=== PATIENT | male | born 1955 | race Caucasian/White ===

== ENCOUNTER 2018-05-30 23:24 | Inpatient (IN) | payer BC ==
[2018-05-30] MEDS ORDERED: niCARdipine 20MG In NaCl 20 MG/200 ML BAG ONE (23:51)
[2018-05-31] MEDS ORDERED: Zolpidem Tartrate 5 MG TAB PO PRN (00:56)
[2018-05-31] MEDS ORDERED: Ondansetron ODT 4 MG TAB PO PRN (00:56)
[2018-05-31] MEDS ORDERED: Nitroglycerin 50 MG/250 ML BOT 250 ML IVPB SCH (01:00)
[2018-05-31 01:46] LABS: CKMB 1.9 ng/mL (0-6.6)
[2018-05-31] MEDS: Ondansetron PF 4 MG/2 ML Vial IVP PRN ×2 (02:41→11:35)
[2018-05-31] MEDS: Sodium Chloride 0.9% 1,000 ML IV SCH ×2 (02:41→20:24)
[2018-05-31 04:24] VITALS: BMI 23.4
[2018-05-31] MEDS ORDERED: hydrALAZINE 20 MG/ML VIAL SLOW IVP PRN ×2 (04:26→10:49)
[2018-05-31] MEDS: niCARdipine HCl 25 MG in Sodium Chloride 0.9% 250 ML 240 ML IVPB PRN ×2 (04:29→11:10)
[2018-05-31] MEDS: Acetaminophen 325 MG TAB PO PRN ×2 (04:36→11:19)
--- NOTE | 2018-05-31 05:30 | HP ---
CHIEF COMPLAINT: Headaches. HISTORY OF PRESENT ILLNESS: This is a 62-year-old male with past medical history of hypertension pre senting from [place] to our facility to be evaluated for hypertension. The patient was transfer red from [place] to be seen in our ED because the patient's blood pressure was elevated at 226/1 54. The patient states that he is not from around here. He is actually from [facility] , and he came here to visit. The patient states that on Wednesday his physician in [place] saw him for headache and abdominal pain and during that time, the physician told the patient that his blood p ressure was very high and that the physician had already ordered blood pressure medications, but were not yet delivered to the patient. Therefore, the physician told the patient to double up on his los wei, which to double it up from 50 mg to 100 mg. The patient states that he started taking the med ication as instructed by the physician; however, the blood pressure continues to be high. At this po int, the patient endorses headaches and abdominal pain, otherwise, the patient denies any vision nielsen ges, nausea, vomiting, chest pain, palpitations, dysuria, hematuria. Of note, the patient has a history of rectal cancer requiring radiation and that normally gives the p atient's abdominal pain because of the previous radiation that has been done for the patient. The maria c farooq also has history of colectomy and now patient does have colostomy, which was performed 2 years ago. The patient also had bilateral hydronephrosis requiring bilateral metal stents which were place d 6 weeks ago and during that time, it was noted that the patient also has abscess between the bladde r and his kidneys and patient is on antibiotics for this. REVIEW OF SYSTEMS: Hypertension, headache, abdominal pain, otherwise as documented in the HPI, all o ther systems were reviewed and are negative. PAST MEDICAL HISTORY: Rectal cancer, hepatitis C positive, HIV positive, hypertension, status post c olostomy, bilateral ureteral stents, inguinal hernia. PAST SURGICAL HISTORY: Colostomy, ureteral stents, inguinal hernia. PSYCHIATRIC HISTORY: No psych history. SOCIAL HISTORY: The patient denies alcohol use. The patient uses marijuana and the patient lives in [facility]. FAMILY HISTORY: Reviewed and noncontributory to this visit. KNOWN ALLERGIES: No known drug allergies. CURRENT MEDICATIONS: The patient takes mirtazapine 15 mg, trazodone 50 mg, amoxicillin-clavulanate 8 75 mg/125 mg, oxybutynin chloride 5 mg, Culturelle, tamsulosin, Biktarvy, and losartan 50 mg. PHYSICAL EXAMINATION: VITAL SIGNS: Blood pressure of 195/106, pulse of 87, respiratory rate of 18, temperature of 98.1, O2 saturation of 98. GENERAL: The patient is awake, alert, oriented x3, not in acute distress. The patient is lying in b ed comfortably, able to speak in full sentences. HEENT: Normocephalic, atraumatic. Pupils are equal, round, and reactive to light. Extraocular move ments are intact. No scleral icterus. No conjunctival pallor. Mucous membranes are dry. NECK: No JVD. Full range of motion, supple. Trachea is midline. LUNGS: Clear to auscultation bilaterally. No wheezing, no rales, no rhonchi. CARDIOVASCULAR: Positive S1, S2, regular rate and rhythm. No murmurs, no gallops, no rubs appreciat ed. ABDOMEN: Soft, nontender, nondistended. Positive bowel sounds in all quadrants. The patient has a colostomy bag with stools and gas. No erythema, no drainage, no ecchymosis, no signs of cellulitis a round the area. EXTREMITIES: The patient has 5/5 upper extremity strength, 5/5 lower extremity strength. Good pulse s bilaterally at the upper and lower extremities. No edema noted. NEUROLOGIC: Cranial nerves II through XII grossly intact. No neurologic deficits noted. SKIN: Warm, dry, and intact referred to the abdomen for skin description. PSYCHIATRIC: Alert, oriented x3, not in acute distress. HEENT: Normal affect. RADIOLOGY: CT of the head is negative. CT of the abdomen and pelvis showed bilateral hydronephrosis with bilateral ureteral stents. Mildly contracted urinary bladder with evidence of mildly thickened wall. LABORATORY DATA: WBC 13.5, hemoglobin is 13.0, hematocrit is 38.1, platelet count is 288. Sodium is 136, potassium is 5.3, chloride is 109, carbon dioxide of 14, BUN is 90, creatinine is 5.31. GFR is 11. Lactic acid is 0.6. Magnesium is 1.9. AST 16, ALT is 11, alkaline phosphatase is 86, creatini ne kinase is 68. Urinalysis, small leukoesterase, but there is a large amount of epithelial cells. ASSESSMENT AND PLAN: This is a 62-year-old male being admitted for hypertensive emergency. At this point, the patient has been admitted to the ICU. We are going to start patient on nicardipine drip. We will continue this nicardipine drip. We have also ordered nitroglycerin to be given if nicardipi ne drip is not working, then we will switch the patient to the nitroglycerin and we will titrate the blood pressure to systolic between 160 to 180. At this point, we will continue supportive care. We will monitor the patient very closely. 1. Headaches. The patient's headaches has not been resolving since the patient's blood pressure is not being controlled. 2. Acute on chronic kidney disease stage 5. At this point, we have consulted Nephrology to follow u p with the patient, since the patient's GFR is less than 30. We will follow up with Nephrology's rec ommendation. We have ordered renal panel. We will follow up on these labs. Of note, we will hold l osartan, since the patient has acute kidney injury. 3. Abdominal abscess. The patient states that he has an appointment to follow up with his urologist for more imaging. The patient is currently taking amoxicillin. We are going to continue patient on this medications in this hospital. 4. History of human immunodeficiency virus. The patient states that his CD4 count is currently abov e 800. We will monitor the patient closely. 5. Status post colostomy, currently stable. We will monitor the patient. 6. Deep venous thrombosis and gastrointestinal prophylaxis.
[2018-05-31 06:32] LABS: #Eosinphils 0.1 thou/uL (0.0-0.7); #Lymphocytes 2.1 thou/uL (1.20-3.40); #Monocytes 0.8 thou/uL (0.11-0.59); #Neutrophils 6.3 thou/uL (1.40-6.50); %Basophils 0.5 % (0.0-1.0); %Eosinophils 1.4 % (0.0-10.0); %Lymphocytes 22.9 % (21.0-51.0); %Monocytes 8.3 % (0.0-10.0); Hemoglobin 12.3 g/dL (14.0-18.0); Mean Corpuscular HGB CONC 31.7 g/dL (32.0-36.0); Mean Corpuscular Hemoglobin 30.7 pg (27.0-31.0); Mean Corpuscular Volume 97.1 fL (78.0-98.0); Mean Platelet Volume 7.9 fL (7.4-10.4); Platelet Count 248 thou/uL (130-400); RBC Distribution Width 12.4 % (11.5-14.5); White Blood Cell (WBC) Count 9.4 thou/uL (4.8-10.8)
[2018-05-31 06:57] LABS: Anion Gap 17 mmol/L (10-20); BUN (Urea Nitrogen) 79 mg/dL (8.4-25.7); Calc. Creatinine Clearance 18 mL/min (70-130); Calcium 9.7 mg/dL (7.8-10.44); Carbon Dioxide 15 mmol/L (23-31); Chloride 112 mmol/L (98-107); Estimated GFR-MDRD 12; Glucose 105 mg/dL (80-115); Potassium 4.8 mmol/L (3.5-5.1); Sodium 139 mmol/L (136-145)
[2018-05-31] MEDS: Amlodipine 10 MG TAB PO SCH (07:56)
--- NOTE | 2018-05-31 07:56 | CT ---
PRELIMINARY REPORT/[facility]/EMERGENTY AFTER-HOURS PROCEDURE CT Head Without Intravenous Contrast EXAM DATE/TIME: 05/31/2018 12:12 AM CLINICAL HISTORY: 62 years old, male; Pain; Headache; Patient HX: 62 yo m presents to ed via ems with hypertension. PT C/O headache and abdominal pain earlier tonight, PT reports highest BP tonight was 226/154. PT report s his headache has now improved but it is not resolved. PT reports HX of rectal cancer, HX of hiv, HX of colostomy performed 2 years ago due to a hole in his colon. TECHNIQUE: Axial computed tomography images of the head/brain without intravenous contrast. COMPARISON: No relevant prior studies available. FINDINGS: Brain: No hemorrhage. There are scattered foci of hypoattenuation within the periventricular and subc ortical white matter compatible with mild chronic microvascular ischemic change. Ventricles: Normal. No ventriculomegaly. Bones/joints: Normal. No acute fracture. Sinuses: Normal as visualized. No acute sinusitis. Mastoid air cells: Normal as visualized. No mastoid effusion. Soft tissues: Normal. IMPRESSION: No acute intracranial hemorrhage. Thank you for allowing us to participate in the care of your patient. Dictated and Authenticated by: Niko Leblanc MD 05/31/2018 12:32 AM Central Time ([place] & [place]) FINAL REPORT CT BRAIN WITHOUT CONTRAST: I agree with the preliminary interpretation. No acute intracranial hemorrhage or mass effect. POS: [facility]
[2018-05-31] MEDS: (Bictegrav/Emtricit/Tenofov Ala [Biktarvy 50-200-25 Mg Tablet] PO SCH (09:00)
[2018-05-31] MEDS ORDERED: Famotidine/PF 20 mg/2ml Vial SLOW IVP SCH ×2 (09:00)
[2018-05-31] MEDS ORDERED: Famotidine 20 MG TAB PO SCH (09:00)
[2018-05-31] MEDS: Heparin 5,000 UNITS/ML VIAL SC SCH ×2 (09:07→20:09)
[2018-05-31] MEDS: Famotidine 20 MG TAB PO SCH (09:07)
[2018-05-31] MEDS: Lactinex Tablet PO SCH (09:16)
[2018-05-31] MEDS: Tamsulosin HCl 0.4 MG CAP PO SCH (09:19)
[2018-05-31] MEDS: Docusate 100 MG CAP PO SCH (09:20)
[2018-05-31] MEDS: Oxybutynin 5 MG TAB PO SCH ×2 (09:20→20:10)
--- NOTE | 2018-05-31 10:01 | CON ---
DATE OF CONSULTATION: 05/31/2018 REASON FOR CONSULTATION: Hypertensive emergency in CCU stay. HISTORY OF PRESENT ILLNESS: This is a 62-year-old male who lives in [place]. He is currently in the area for [employer]. He noted his blood pressure to be severely elevated at home yesterday and came in. When he arrived, his blood pressure was 226/154. He has been placed on nicardipine drip. He has an elevated BUN and creatinine. It is not known if that is related to hypertension or not. He has a history of what sounds to be urethral strictures from previous radiation for rectal cancer. He has stents that have been put in for that. PAST MEDICAL HISTORY: 1. HIV. 2. He thinks he has hepatitis B, although his history and physical says hepatitis C. 3. Bilateral urethral strictures with stent placement. 4. History of a colostomy in the past with inguinal hernia. PAST SURGICAL HISTORY: 1. Colostomy. 2. Ureteral stents. 3. Inguinal hernia repair. 4. Vein stripping. SOCIAL HISTORY: Does not consume alcohol or uses marijuana. Does not smoke cigarettes. FAMILY MEDICAL HISTORY: Unremarkable. ALLERGIES: None. MEDICATIONS: Prior to admission, mirtazapine, trazodone, Augmentin, oxybutynin and losartan. PHYSICAL EXAMINATION: VITAL SIGNS: Temperature 97.5, pulse 89, blood pressure 165/96, currently on nicardipine drip at 5 m cg per hour. O2 sat 98%. GENERAL: He is awake and alert, in no distress. HEENT: Unremarkable. NECK: No JVD. CARDIOVASCULAR: S1, S2 regular, without murmur. LUNGS: Clear. ABDOMEN: Soft, nontender. EXTREMITIES: No clubbing, cyanosis or edema. LABORATORY DATA: Sodium 139, potassium 4.8, chloride 112, CO2 15, anion gap 12, BUN 79, creatinine 4 .8, glucose 105. White blood cell count 9.4, hematocrit 30.9, platelet count 248,000. Brain CT nega tive. ASSESSMENT: 1. Hypertensive emergency. 2. Elevated BUN and creatinine -- has evidence of elevated RBCs and white blood cells, could be micaela cative of nephritis. 3. Chronic hepatitis B. PLAN: 1. Blood pressure management with nicardipine. 2. Would avoid PREET inhibitors and angiotensin II blockers until BUN and creatinine have dissipated. 3. Amlodipine was seen to be a reasonable choice. 4. Agree with Nephrology consultation. 5. Monitor urine output.
[2018-05-31] MEDS ORDERED: Artificial Tears 18 DROP/0.9 ML EA EYE PRN (10:48)
[2018-05-31] MEDS ORDERED: Eucerin (Mineral Oil/Petrolatum,White) 30 gm Jar TOP PRN (10:48)
[2018-05-31] MEDS ORDERED: cloNIDine 0.1 MG TAB PO PRN (10:48)
[2018-05-31] MEDS ORDERED: Labetalol HCl 100 MG/20 ML VIAL SLOW IVP PRN (10:48)
--- NOTE | 2018-05-31 10:49 | PDOC.PN ---
- Subjective Encounter Start Date: 05/31/18 Encounter Start Time: 09:30 -: old records requested/rev Patient seen and examined. No new complaints. No overnight events - Objective Resuscitation Status: Resuscitation Status FULL:Full Resuscitation MAR Reviewed: Yes Vital Signs & Weight: Vital Signs (12 hours) Temp Pulse BP Pulse Ox 05/31/18 08:00 97.9 F 97 05/31/18 07:56 101 H 165/96 H 05/31/18 02:30 98 05/31/18 02:20 97.5 F L Weight Weight 173 lb 1.006 oz Most Recent Monitor Data Heart Rate from ECG 97 NIBP 144/84 NIBP BP-Mean 104 Respiration from ECG 19 SpO2 98 I&O: 05/30/18 05/31/18 06/01/18 06:59 06:59 06:59 Intake Total 694 300 Output Total 1150 925 Balance -456 -625 Result Diagrams: 05/31/18 05:56 05/31/18 05:56 Radiology Reviewed by me: Yes EKG Reviewed by me: Yes Phys Exam - Physical Examination Constitutional: NAD HEENT: PERRLA, moist MMs, sclera anicteric Neck: no JVD, supple Respiratory: no wheezing, no rales, no rhonchi Cardiovascular: RRR, no significant murmur, no rub Gastrointestinal: soft, non-tender, no distention, positive bowel sounds Musculoskeletal: no edema, pulses present Neurological: non-focal, normal sensation, moves all 4 limbs Lymphatic: no nodes Psychiatric: normal affect, A&O x 3 Skin: no rash, normal turgor Dx/Plan (1) Acute kidney failure Status: Acute (2) Hydronephrosis, bilateral Code(s): N13.30 - UNSPECIFIED HYDRONEPHROSIS Status: Acute (3) Hypertensive emergency Code(s): I16.1 - HYPERTENSIVE EMERGENCY Status: Acute (4) Obstructive uropathy Code(s): N13.9 - OBSTRUCTIVE AND REFLUX UROPATHY, UNSPECIFIED Status: Acute (5) HIV (human immunodeficiency virus infection) Status: Chronic - Plan cont current plan of care * medication reviewed as below * symptomatic treatment * home medication reconciled * will add coreg * will try to wean off cardene drip as tolerated * use prn BP meds * once off cardene drip will transfer to medical * monitor renal function. Review of Systems - Review of Systems ENT: negative: Ear Pain, Ear Discharge, Nose Pain, Nose Discharge, Nose Congestion, Mouth Pain, Mouth Swelling, Throat Pain, Throat Swelling, Other Respiratory: negative: Cough, Dry, Shortness of Breath, Hemoptysis, SOB with Excertion, Pleuritic Pain, Sputum, Wheezing Cardiovascular: negative: chest pain, palpitations, orthopnea, paroxysmal nocturnal dyspnea, edema, light headedness, other Gastrointestinal: negative: Nausea, Vomiting, Abdominal Pain, Diarrhea, Constipation, Melena, Hematochezia, Other Genitourinary: negative: Dysuria, Frequency, Incontinence, Hematuria, Retention , Other Musculoskeletal: negative: Neck Pain, Shoulder Pain, Arm Pain, Back Pain, Hand Pain, Leg Pain, Foot Pain, Other Skin: negative: Rash, Lesions, Dante, Bruising, Other - Medications/Allergies Allergies/Adverse Reactions: Allergies Allergy/AdvReac Type Severity Reaction Status Date / Time No Known Allergies Allergy Verified 05/31/18 04:22 Medications: Current Medications Acetaminophen (Tylenol) 650 mg PO Q4H PRN PRN Reason: Headache/Fever/Mild Pain (1-3) Last Admin: 05/31/18 04:36 Dose: 650 mg Acidophilus (Floranex) 1 tab PO DAILY [facility] Last Admin: 05/31/18 09:16 Dose: Not Given Amlodipine Besylate (Norvasc) 10 mg PO DAILY [facility] Last Admin: 05/31/18 07:56 Dose: 10 mg [facility] ([facility]) [facility] Docusate Sodium (Colace) 100 mg PO DAILY [facility] Last Admin: 05/31/18 09:20 Dose: Not Given Famotidine (Pepcid) 20 mg SLOW IVP QAM [facility] Last Admin: 05/31/18 09:08 Dose: Not Given Famotidine (Pepcid) 20 mg PO QAM [facility] Last Admin: 05/31/18 09:07 Dose: 20 mg Heparin Sodium (Porcine) (Heparin) 5,000 units SC BID [facility] Last Admin: 05/31/18 09:07 Dose: 5,000 units Nitroglycerin/Dextrose (Nitroglycerin 50 Mg/250 Ml Bot) 250 mls @ 0 mls/hr IVPB INF [facility]; Protocol Sodium Chloride (Normal Saline 0.9%) 1,000 mls @ 60 mls/hr IV .[id number] [facility] Last Admin: 05/31/18 02:41 Dose: 1,000 mls Nicardipine HCl 25 mg/ Sodium (Chloride) 250 mls @ 0 mls/hr IVPB INF PRN; Protocol PRN Reason: TO KEEP SBP between 160-180 Last Admin: 05/31/18 04:29 Dose: 250 mls Mirtazapine (Remeron) 15 mg PO HS [facility] Ondansetron HCl (Zofran Odt) 4 mg PO Q6H PRN PRN Reason: Nausea/Vomiting Ondansetron HCl (Zofran) 4 mg IVP Q6H PRN PRN Reason: Nausea/Vomiting Last Admin: 05/31/18 02:41 Dose: 4 mg Oxybutynin Chloride (Ditropan) 5 mg PO BID [facility] Last Admin: 05/31/18 09:20 Dose: Not Given (Bictegrav/Emtricit/Tenofov Ala [ Biktarvy 50-200-25 Mg Tablet] 0 each PO DAILY [facility] Last Admin: 05/31/18 09:00 Dose: Not Given Sodium Chloride (Flush - Normal Saline) 10 ml IVF Q12HR PRN PRN Reason: Saline Flush Sodium Chloride (Flush - Normal Saline) 10 ml IVF PRN PRN PRN Reason: Saline Flush Tamsulosin HCl (Flomax) 0.4 mg PO DAILY [facility] Last Admin: 05/31/18 09:19 Dose: Not Given Trazodone HCl (Desyrel) 50 mg PO HS [facility] Zolpidem Tartrate (Ambien) 5 mg PO HSPRN PRN PRN Reason: Insomnia
[2018-05-31] MEDS ORDERED: Carvedilol 6.25 MG TAB PO SCH (11:00)
--- NOTE | 2018-05-31 13:31 | ULT ---
BILATERAL RENAL ULTRASOUND COMPLETE: HISTORY: A 62-year-old male with a history of bilateral ureteral stents, increasing creatinine. FINDINGS: There is moderate bilateral renal hydronephrosis slightly greater on the right side than the left, bu t the upper collecting systems appear to be somewhat less distended than on the prior CT scan of 05/12. The right kidney measures 1.9 x 6.5 x 6.1 cm. The left kidney measures 14.2 x 6.8 x 6.8 cm. The billie dder is incompletely filled, the patient emptied her bladder just prior to the study. IMPRESSION: Moderate bilateral hydronephrosis, right slightly greater than left. Bilateral ureteral stents. POS: [facility]
[2018-05-31] MEDS: Carvedilol 6.25 MG TAB PO SCH (17:14)
--- NOTE | 2018-05-31 20:51 | CON ---
DATE OF CONSULTATION: 05/31/2018 REASON FOR CONSULTATION: Hypertensive crisis associated with complications following treatment of rectal cancer as well as HIV infection. HISTORY OF PRESENT ILLNESS: A 62-year-old patient who is a resident of [place], [place] and was visiting family members here in town for [place] and he has a history of longstanding HIV infection, well controlled with antiretroviral therapy as well as rectal cancer managed with resection and radiation therapy, colostomy placement which appears to be permanent. The patient has developed complications related to the radiation therapy with obstruction of the renal outflow tract, which have required bilateral stent placement. Patient also has a history of chronic hepatitis C, unclear if it has been treated. The patient on the way here was noticed to be hypertensive. His doctor increased the dose of losartan before he came over to this town and after arriving, he felt unwell with headaches, some abdominal pain , also recently about 6 weeks before admission, he had revision of the ostomy site and after that he had a CT scan which showed a fluid collection in the pelvic area and he was receiving oral Augmentin empirically for management of potential infection there. After arriving again, he became unwell with the symptoms described above and admitted in the ICU for IV nicardipine that has now been transitioned to oral Norvasc plus Coreg. He is feeling better, still with some abdominal discomfort. No headaches, no visual symptoms, sore throat, odynophagia or dysphagia, no dyspnea or chest pain. He is voiding quite profusely without any difficulty. The colostomy is behaving well. PAST MEDICAL HISTORY: Longstanding human immunodeficiency virus infection, well controlled with last viral load less than 20 and CD4 cell count in the mid 800s, chronic hepatitis C with uncertain treatment status, hypertension. Complications following treatment for rectal cancer with colostomy placement and development of fibrosis with renal outflow tract obstruction requiring stent placement. PAST SURGICAL HISTORY: As above plus inguinal hernia. He had a recent identification of the fluid collection in the pelvis, which is being managed empirically with Augmentin. SOCIAL HISTORY: He lives in [place], [place] and former smoker. FAMILY HISTORY: Noncontributory. PHYSICAL EXAMINATION: VITAL SIGNS: T-max 98, blood pressure 170/105, respirations 16-23, O2 sat 98% room air. GENERAL APPEARANCE: Appears in no distress. The patient has a peripheral IV access. No Art catheter. He is voiding spontaneously without difficulty. Colostomy site is okay. He has no lymphadenopathy. HEENT: Ocular movements conjugate. Oral cavity is normal. Teeth in good shape. NECK: Supple, no jugular vein distention. LUNGS: With symmetric air entry, no crackles or wheezing. HEART: S1, S2, regular rate. No S3, S4. ABDOMEN: Soft with mild tenderness in the mid periumbilical region. No distention, no ascites, no organomegaly. EXTREMITIES: No joint inflammatory activity. Moves extremities equally. Pulses 1+ in dorsalis pedis. Plantar responses are flexure. No clonus. NEUROLOGIC: Cognitive function appears to be intact. LABORATORY DATA: White cell count 9.4, hemoglobin 12.3, platelets 248 with a normal differential. Sodium 139, creatinine 4.8, on admission creatinine was 5.31. He does not recall his creatinine in [facility]. CURRENT MEDICATION LIST: Includes Florinef, Norvasc, Coreg, Catapres, Colace, Apresoline, nicardipine has been discontinued, mirtazapine and is taking bictegravir still. ASSESSMENT: 1. Longstanding human immunodeficiency virus infection, well controlled on bictegravir. 2. Complications following treatment for rectal cancer with resection, radiation therapy with fibrosis and obstruction of the renal outflow tract, requiring stent placement bilaterally. 3. Fluid collection in the pelvis that has been managed empirically with oral Augmentin in [place], [place]. 4. Hypertensive crisis associated with decrease in renal function. DISCUSSION: The reason for the decrease in renal function is not clear at this point in time, it could be related to obstruction of the stents, although he seems to have adequate urinary volume. He does have some element of hydronephrosis and consultation with Urology would probably be advisable at this point in time. Bictegravir is an antiretroviral medication that is prescribed once daily for patients who have GFR down to 30 and it should not be prescribed below that level and I would recommend switching him to an alternate regimen least until his kidney recover function. An alternate approach would be to stop his bictegravir and have him decide with his personal physician in [place] what the next step would be. I would also adjust the dosage of Augmentin to the level of his creatinine. It is possible, if not likely that the kidney function will continue to improve in the ensuing days. He is planning to go back to [place] as early as this coming Wednesday. So we will not have a lot of time to monitor his progress. It looks like it is going to be willing to be discharged as soon as tomorrow if it is felt to be safe. [facility]
[2018-05-31] MEDS ORDERED: traZODone HCl 50 MG TAB PO SCH (21:00)
[2018-05-31] MEDS ORDERED: Mirtazapine 15 MG TAB PO SCH (21:00)
[2018-06-01] MEDS: Docusate 100 MG CAP PO SCH (07:40)
[2018-06-01] MEDS: Amlodipine 10 MG TAB PO SCH (07:40)
[2018-06-01] MEDS: Famotidine 20 MG TAB PO SCH (07:40)
[2018-06-01] MEDS: Carvedilol 6.25 MG TAB PO SCH (07:40)
[2018-06-01] MEDS: Oxybutynin 5 MG TAB PO SCH (07:41)
[2018-06-01] MEDS: Tamsulosin HCl 0.4 MG CAP PO SCH (07:41)
[2018-06-01] MEDS: Lactinex Tablet PO SCH (07:41)
[2018-06-01] MEDS: Heparin 5,000 UNITS/ML VIAL SC SCH (07:41)
[2018-06-01] MEDS: (Bictegrav/Emtricit/Tenofov Ala [Biktarvy 50-200-25 Mg Tablet] PO SCH (08:22)
--- NOTE | 2018-06-01 08:33 | CON ---
DATE OF CONSULTATION: 05/31/2018 REASON FOR CONSULTATION: Elevated creatinine. HISTORY OF PRESENT ILLNESS: This is a very pleasant 62-year-old gentleman who presented to the [facility] after his insurance sales manager had told him that he has hyperkalemia as well as elevated creatinine. The patient has had a history of elevated creatinine, but records are not available. His creatinine was 5.3 on admission and after hydration improved to 4.8. The patient denies taking any NSAIDs but was complaining of headache and uncontrolled blood pressure. The patient has been treated for HIV, has h ad colectomy as well as rectal cancer and radiation therapy. The patient at this time denies complai nts. PAST MEDICAL HISTORY: Significant for hepatitis C, HIV, hypertension, colostomy, ureteral stenting, inguinal hernia, radiation therapy, history of HIV, medication therapy. SOCIOECONOMIC HISTORY: No alcohol or drug use. FAMILY HISTORY: Negative for ESRD. ALLERGIES: Reviewed. HOME MEDICATIONS: List reviewed. HOSPITAL MEDICATIONS: List reviewed. REVIEW OF SYSTEMS: A 15-point review of systems was performed and was negative except for positives noted above. GENERAL: Weakness- HEAD: Headache- NECK: No swelling or lumps. NOSE: No epistaxis or discharge. EYES: No diplopia or pain. RESPIRATORY: Dyspnea- CARDIOVASCULAR: Chest pain- GASTROINTESTINAL: Nausea- /STUDY LEAD: Hematuria- MUSCULOSKELETAL: No joint pain. NEUROPSYCHIATIC SYSTEMS: No suicidal ideation. No ideation. SKIN: Denies any rash or ulcer. CONSTITUTIONAL: No fever or chills. PHYSICAL EXAMINATION: GENERAL: Patient is awake, alert. VITAL SIGNS: Afebrile, pulse 85, breathing 16, blood pressure was 186/105 HEAD/NECK: Normocephalic. Atraumatic. EYES: EOMI. No deformity. EARS: Clear. No ulcers. NOSE: Intact. No lesions. MOUTH: Clear. No discharge. THROAT: Clear. No exudate. LUNGS: Clear. No crackles. CARDIAC: S1, S2. No rub. ABDOMEN: Benign. BS+. GENITALIA/RECTUM: Art absent. BACK/EXTREMITIES: Edema 0+ Ulcer- NEUROLOGICAL: Alert and motor intact. SKIN: Rash- Bruise- LYMPHATICS: Edema- Ulcer- LABORATORY DATA: Show bicarbonate 15, creatinine 4.8, BUN 79. ASSESSMENT AND RECOMMENDATIONS: 1. Acute kidney injury most likely due to decreased effective arterial blood volume in the setting o f his HIV medications. I would recommend holding Biktarvy until cleared by Infectious Disease. 2. Hypertension, stable. 3. Metabolic acidosis. No need for bicarbonate therapy. 4. Anemia, stable. 5. Hypertension. Would recommend adding calcium channel donaldo as well as hydralazine and holding off on IV fluids. 6. Medications based on glomerular filtration rate are appropriate. Again, no indication for dialys is.
[2018-06-01 10:03] LABS: Bilirubin Negative (Negative); Blood, Urine Large (Negative); Clarity CLEAR (Clear); Glucose, Urine (Dipstick) Negative (Negative); Leukocyte Moderate (Negative); Nitrite Negative (Negative); Protein, Urine (Dipstick) Negative (Neg-Trace); Specific Gravity, Urine 1.009 (1.002-1.036); Urobilinogen 0.2 mg/dL (0.2-1.0)
[2018-06-01 10:06] LABS: Bacteria/HPF None Seen HPF (None Seen); Hyaline Casts/LPF 0-3 HYALINE CAST LPF (0-3 Hyaline); Pathc Cast-AUWi Flag 0.43 (0-2.49); RBC/HPF 21-50 HPF (0-3); Squamous Epithelial 0-3 HPF (0-3)
--- NOTE | 2018-06-01 10:47 | DIS ---
DATE OF ADMISSION: 05/31/2018 DATE OF DISCHARGE: 06/01/2018 PRIMARY CARE PHYSICIAN: [facility] call admission. DISCHARGE DISPOSITION: Home per his request. PRIMARY DISCHARGE DIAGNOSES: 1. Acute/chronic kidney failure (baseline chronic kidney disease status not known). 2. Hypertensive emergency, resolved. SECONDARY DISCHARGE DIAGNOSES: Obstructive uropathy, hypertension, bilateral hydronephrosis with a s tent; human immunodeficiency virus, history of malignant neoplasm of rectum, chronic kidney disease. PRIMARY PROCEDURE/OPERATION: None. RADIOLOGICAL INVESTIGATION: CT brain was normal. Renal ultrasound showed bilateral hydronephrosis w ith a stent. SIGNIFICANT LABORATORY DATA: WBC 9.4, hemoglobin 12.3, platelets 248. Sodium 139, potassium 4.8, BU N 79, creatinine 4.80, calcium 9.7, CK 68, CK-MB 1.9, troponin 0.019. Urinalysis suggestive of UTI. DISCHARGE MEDICATIONS: The patient's HIV medication is advised to hold until his renal function is n ormalized to baseline, Colace 100 mg p.o. daily, Probiotic 1 capsule daily, Remeron 15 mg at bedtime, Ditropan 5 mg p.o. b.i.d., Flomax 0.4 mg p.o. daily, trazodone 50 mg p.o. at bedtime, amlodipine 5 m g p.o. daily, amoxicillin 500/125 one tablet twice daily, Coreg 12.5 mg p.o. b.i.d. CONTRAINDICATIONS: None. CODE STATUS: FULL CODE. INPATIENT CONSULTANTS: Dr. Magallon was consulted while in hospital for HIV. Dr. Wagner, pulmonologis t, was following for Critical Care. Dr. Terry, care transport nurse, was following while in hospital. TEST RESULTS PENDING ON DISCHARGE: None. ALLERGIES: No known drug allergy. DISCHARGE PLAN: Post hospital, the patient has appointment with his ID doctor as well as urologist a nd primary care physician at [place], [place], on this coming Wednesday. HOSPITAL COURSE: The patient is a 62-year-old male, who is originally from [place], [place]. He is getting all his care at [facility]. He has ID, urologist, and primary care physician. This patient has previous history of malignant neoplasm of rectum, which required surgery with a colostomy , as well as radiation therapy. After radiation therapy, patient also had a complication with obstru ctive uropathy with an obstruction that required stent placement and he is following urologist there. This patient was driving from there to here for Thanksgiving family get together. He was admitted in the hospital for high blood pressure, because he did not take any medication. He required ICU adm ission for Cardene drip. His blood pressure was controlled with the Cardene drip, and subsequently, we started on a different blood pressure medication. He was on losartan that was discontinued and ch anged to amlodipine and Coreg. The patient dose of Augmentin, which he was taking for urinary tract infection was also renally adjusted. Dr. Magallon recommended to hold his anti-HIV medication until his renal function stabilized. He will follow up with his HIV doctor, Nephrology as well as Urology the re. At this point, we do not have enough time to monitor his laboratory in our hospital as well as i n our town, because he is planning to leave this town on Wednesday and he has appointment with all consu ltants on Wednesday. I have seen and examined at bedside today. Plan of care discussed with him. All review of system re viewed with him and negative. PHYSICAL EXAMINATION: VITAL SIGNS: Currently, temperature 98.2, pulse 87, blood pressure 170/88, respiratory rate 18, satu ration 98% on room air, weight 173 pounds. GENERAL: The patient is currently alert, awake, in no obvious acute distress. HEAD: Normocephalic, atraumatic. EYES: Pupils round, reactive to light. Extraocular muscle intact. ENT: Oropharynx within normal limits. LUNGS: Clear to auscultation without any rhonchi or rales. CARDIAC: S1 and S2 regular without any murmur. ABDOMEN: Soft and benign without any tenderness. Colostomy in place. EXTREMITIES: No edema. NEUROLOGIC: Nonfocal examination. Total time spent on discharge day 32 minutes.
[2018-06-01 11:36] VITALS: BP 162/88; TEMP 97.6
[2018-06-01] MEDS: Sodium Chloride 0.9% 1,000 ML IV SCH (11:43)
--- NOTE | 2018-06-01 14:09 | PRG ---
DATE OF SERVICE: 06/01/2018 SUBJECTIVE: This is a 62-year-old gentleman, being seen for acute kidney injury. The patient denies any nausea, vomiting, or chest pain. OBJECTIVE: See above. GENERAL: On exam, patient is awake and alert. VITAL SIGNS: Afebrile, pulse , breathing at 16, blood pressure 162/88. GENERAL APPEARANCE AND MENTAL STATUS: Fair. HEAD/NECK: Normocephalic. Atraumatic. EYES: EOMI. No deformity. EARS: Clear. No ulcers. NOSE: Intact. No lesions. MOUTH: Clear. No discharge. THROAT: Clear. No exudate. LUNGS: Clear. No crackles. CARDIAC: S1, S2. No rub. ABDOMEN: Benign. BS+. GENITALIA/RECTUM: Art absent. BACK/EXTREMITIES: Edema 0+, ulcer. NEUROLOGICAL: Alert and motor intact. SKIN: Rash - bruise. LYMPHATICS: Edema - ulcer. LABORATORY DATA: Labs show creatinine is pending. ASSESSMENT AND RECOMMENDATIONS: 1. Acute kidney injury with chronic kidney disease due to hydronephrosis and possibly medication-ind uced acute interstitial nephritis. I would recommend Urology consultation. No indication for dialys is. 2. Metabolic acidosis. Recheck labs. 3. Anemia, stable. 4. Hypertension. Avoid PREET and ARB. No urgent indication for dialysis. 5. Bilateral moderate hydronephrosis. Follow up with Urology.
== END 2018-06-01 12:22 | disposition home or self-care (01) | DRG 683 ==
LOC: ERS 23:24 → CCU 05-31 02:18 → ONC 05-31 17:01
PROVIDERS: ADMIT Internal Medicine; ATTEND Internal Medicine
DX: N17.9 Acute kidney failure, unspecified (principal); I16.1 Hypertensive emergency; B20 Human immunodeficiency virus [HIV] disease; L02.211 Cutaneous abscess of abdominal wall; I12.0 Hypertensive chronic kidney disease with stage 5 chronic kidney disease or end stage renal disease; E87.2 Acidosis; N18.5 Chronic kidney disease, stage 5; N13.30 Unspecified hydronephrosis; N13.9 Obstructive and reflux uropathy, unspecified; B18.2 Chronic viral hepatitis C; D64.9 Anemia, unspecified; Z85.048 Personal history of other malignant neoplasm of rectum, rectosigmoid junction, and anus; Z93.3 Colostomy status
CPT/HCPCS: 36415; 70450; 76770; 80048; 81001; 82553; 84484; 85025; J0360; J1644; J2405; J7050